=== PATIENT | male | born 1960 | race Caucasian/White ===

== ENCOUNTER 2019-03-04 21:31 | Emergency (ER) | payer SELFPAY ==
--- NOTE | 2019-03-04 21:53 | EDM.PDOC ---
ED HPI GENERAL MEDICAL PROBLEM - General Stated Complaint: CODE BLUE Time Seen by Provider: 03/04/19 21:33 Source of Information: Reports: EMS History Limitations: Reports: Other (CPR progress) - History of Present Illness INITIAL COMMENTS - FREE TEXT/NARRATIVE: Patient was last seen alive approximate 6 PM by a neighbor while he was working on his car EMS was called by a neighbor at 2106 for an unresponsive male bystander initiated CPR was in progress upon EMS arrival patient was in asystole upon arrival CPR was continued epinephrine was pushed 3 rounds through an IO no rhythm change was ever obtained patient was transported to the emergency room Patient had no past medical history known ED ROS GENERAL - Review of Systems Review Of Systems: Unable To Obtain ED EXAM, CPR - Physical Exam Exam: See Below Text/Narrative:: Patient arrived via EMS boarded CPR in progress via Ramsey device ETT was established in the field with a low PO2 vital signs were unable to be obtained patient was purple and cyanotic from the shoulders up he had fixed dilated pupils bilateral bilateral cerumen impaction TMs could not be visualized trace amount of blood in the left nare abdomen was soft nondistended extremities were cold no pulses could be obtained patient was noted to have urinary incontinence around the groin he was wet Patient had approximately a 1 cm circular abrasion to the left fore head No rhythm could be obtained while holding CPR code was called [id number] Discussed patient's with son and daughter General Appearance: No Apparent Distress. No: Alert, WD/WN Skin Exam: No: Warm, Dry, Normal Color, No Rash Course - Vital Signs Last Recorded V/S: Vital signs could not be obtained Departure - Departure Time of Disposition: 21:50 Disposition: 20 Preliminary Cause of *Q: Cardiac Arrest Clinical Impression: Unsuccessful cardiopulmonary resuscitation - Discharge Information Referrals: PCP,Unknown [Primary Care Provider] - - Problem List & Annotations (1) Unsuccessful cardiopulmonary resuscitation SNOMED Code(s): 401444637 Code(s): [id number] - Status: Acute Current Visit: Yes - Assessment/Plan Assessment:: CPR unsuccessful Plan: Celine Cervantes M.D. was [id number] left msg spoke with DR Cueva send pt home and he will obtain records 2014
== END 2019-03-05 15:45 | disposition expired ==
LOC: VM.ED 21:31 → EDBD 21:32 → VM.ED 21:32
DX: I46.9 Cardiac arrest, cause unspecified (principal)
CPT/HCPCS: 92950; 99285-25; 99285-GF